=== PATIENT | male | born 1950 | race Caucasian/White ===

== ENCOUNTER → 2019-09-19 | Outpatient (CLI) | payer OTHER | LOC: SJCVC 13:54 | DX: R94.31 Abnormal electrocardiogram [ECG] [EKG] (principal); I45.10 Unspecified right bundle-branch block; E78.00 Pure hypercholesterolemia, unspecified; I10 Essential (primary) hypertension; I49.1 Atrial premature depolarization; R07.9 Chest pain, unspecified; R06.09 Other forms of dyspnea; R01.1 Cardiac murmur, unspecified ==

== ENCOUNTER → 2019-09-19 | Outpatient (CLI) | payer OTHER | LOC: CAT 15:32 | DX: Z13.6 Encounter for screening for cardiovascular disorders (principal); I25.10 Atherosclerotic heart disease of native coronary artery without angina pectoris; E78.00 Pure hypercholesterolemia, unspecified ==

== ENCOUNTER → 2019-09-22 | Outpatient (CLI) | payer OTHER ==
[~2019-09-22] MED LIST: BENICAR20 MG PO; CRESTOR10 MG PO; FLOMAX0.4 MG PO; LITE COAT ASPI325 MG PO
== END ==
LOC: SJCVCIMAG 07:09
PROVIDERS: ATTEND Internal Medicine Cardiovascular Disease
DX: I08.3 Combined rheumatic disorders of mitral, aortic and tricuspid valves (principal); R94.31 Abnormal electrocardiogram [ECG] [EKG]

== ENCOUNTER → 2019-09-23 | Outpatient (CLI) | payer OTHER | LOC: SJCVCIMAG 09-22 11:39 | PROVIDERS: ATTEND Internal Medicine Cardiovascular Disease | DX: I44.7 Left bundle-branch block, unspecified (principal); R94.31 Abnormal electrocardiogram [ECG] [EKG]; I10 Essential (primary) hypertension; I73.9 Peripheral vascular disease, unspecified ==

== ENCOUNTER → 2019-09-24 | Outpatient (CLI) | payer OTHER ==
[~2019-09-24] VITALS: Ht 170.2 cm; Wt 82.1 kg
[2019-09-24 08:47] VITALS: BP 136/68
--- NOTE | 2019-09-24 17:26 | CATHLAB ---
[facility] [place] [address] INVASIVE PROCEDURE REPORT Name: YANA SALEH Room #: REG CHAS SykesAlvarezChayaAlvarez#: [id number] Admission: 09/24/19 Attend Phys: Kishore Del Rosario MD, Discharge: Date of : 52 Report #: [id number] THIS REPORT FOR: cc: Jessica Lomeli MD,Jessica Del Rosario,Kishore Gibbs MD [facility] ~ APPROVED REPORT Study performed: 09/24/2019 09:25:53 Patient Details Patient Status: Out-Patient Room #: The patient is a 69 year-old male Event Personnel Kishore Del Rosario Clinical Instructor, Pepe Rader RN RN, Belinda Oneil RTR, Toni Barnett Roberta Monitor Procedures Performed Art Access - R femoral artery* Wesley Access - R femoral vein Right and Left Heart Cath w/or w/o Coronarie [id number] [facility] Aortogram Abdominal Peripheral Angio [id number] 79039 Initial Mod Sed Same Phys/QHP Gr [id number] 08814 Mod Sed Same Phys/QHP Ea 778807 Hemostasis w/ Mynx Indication Chest pain Procedure Narrative The Right Groin^ was infiltrated with subcutaneous anesthesia. A PINNACLE 6FR Sheath #[id number] sheath was inserted into the RFA 6F^. Coronary angiography was performed using coronary diagnostic catheters. The right coronary system was accessed and visualized with a JR4 catheter. The left coronary system was accessed and visualized with a JL4 catheter. The left ventricle was accessed and visualized with a STR PIG catheter. Left ventriculogram was performed in 30 degree projection. There was no hematoma. Intraoperative Conscious Sedation Sedation start time: 954 Case end Time: 1044 Fentanyl 100 mcg Versed 2 mg Fluoro Time: 2.58 minutes [facility] [address] [place] [address] INVASIVE PROCEDURE REPORT Name: STACIA SALEHRADHA YU Room #: [facility]#: [id number] Admission: 09/24/19 Attend Phys: Kishore Del Rosario, Discharge: Date of : 52 Report #: [id number] Dose: DAP 4023.30 cGycm2 400 mGy Contrast Type and Amount: Visipaque 100 ml Hemodynamics The right atrial mean pressure is 9 mmHg. The right ventricular pressure is 36/3 mmHg. The pulmonary artery pressure is 29/11 mmHg with a mean of 19 mmHg. The mean pulmonary capillary wedge pressure is 17 mmHg. The aortic pressure is 121/64 mmHg with a mean of 86 mmHg. The cardiac output using thermo method is 4.20 L/min. Conclusion 1. Successful right heart catheterization with cardiac output by thermodilution. See above hemodynamics. #2 normal left jugular size and systolic function EF 55 to 60%. #3 abdominal aorta mild plaquing no aneurysm formation #4 left main free of disease giving rise to LAD and circumflex #5 LAD with mild irregularities its a type I it stops short of the apex. Relatively small in caliber. #6 circumflex OM nondominant with mild disease. Moderate distribution. #7 dominant right coronary artery no occlusive disease is noted Recommendations and plan: Continue aggressive risk factor modification. There is no indication for coronary intervention. Pulmonary pressures are not elevated. Follow-up will be arranged. Follow discharge protocol. <ELECTRONICALLY SIGNED> By: Kishore Del Rosario MD, [facility] 09/24/191724 24 24 Kishore Del Rosario MD, FACC /INF
== END | disposition home or self-care (01) ==
LOC: CATH 07:44
PROVIDERS: ATTEND Internal Medicine Cardiovascular Disease
DX: R07.9 Chest pain, unspecified (principal); I25.10 Atherosclerotic heart disease of native coronary artery without angina pectoris; I70.0 Atherosclerosis of aorta; I10 Essential (primary) hypertension; E78.00 Pure hypercholesterolemia, unspecified; Z98.890 Other specified postprocedural states; Z79.82 Long term (current) use of aspirin; Z79.899 Other long term (current) drug therapy; Z88.8 Allergy status to other drugs, medicaments and biological substances

== ENCOUNTER 2020-08-05 10:37 | Emergency (ER) | payer OTHER ==
[~2020-08-05] VITALS: Ht 170.2 cm; Wt 82.6 kg
[2020-08-05 10:38] VITALS: BP 144/68
[2020-08-05] MEDS ORDERED: ASA81BEC PO (10:45)
[2020-08-05 11:23] LABS: ABSOLUTE NEUTROPHILS 3.9 thou/uL (1.4-8.2); BASOPHILS 1.1 % (0.0-2.0); EOSINOPHILS 1.5 % (0.0-3.0); HEMATOCRIT 41.6 % (42.0-52.0); HEMOGLOBIN 14.6 gm/dL (14.0-18.0); MCH 30.1 pg (26.0-34.0); MCHC 35.1 g/dL (28.0-37.0); MCV 85.7 fL (80.0-100.0); MONOCYTES 7.3 % (1.0-8.0); PLATELET COUNT 189 thou/uL (150-400); POLYS 65.1 % (36.0-66.0); RBC 4.85 mil/uL (4.50-6.00); RDW 13.4 % (10.5-14.5)
[2020-08-05 11:40] LABS: ANION GAP 11 mmol/L (7-16); BUN 15 mg/dL (7-18); CALCIUM 8.2 mg/dL (8.5-10.1); CHLORIDE 105 mmol/L (98-107); CO2 26 mmol/L (21-32); CREATININE 1.3 mg/dL (0.7-1.3); GLUCOSE 115 mg/dL (74-106); POTASSIUM 4.1 mmol/L (3.5-5.1); SODIUM 142 mmol/L (136-145)
[2020-08-05 11:49] LABS: ALBUMIN 3.6 g/dL (3.4-5.0); SGOT 27 U/L (15-37); SGPT 43 U/L (30-65); TOTAL BILIRUBIN 0.5 mg/dL (0.2-1.0); TOTAL PROTEIN 7.3 g/dL (6.4-8.2); TROPONIN-I <0.06 ng/mL (<0.06)
[2020-08-05 15:59] VITALS: BP 111/61
[2020-08-05 16:06] LABS: CHOLESTEROL 147 mg/dL (<200); HDL CHOLESTEROL 43 mg/dL (>40); LDL CHOLESTEROL 74 mg/dL (<100); TC:HDL 3.4 Ratio (Not establshd); TRIGLYCERIDE 150 mg/dL (<150); VLDL 30 mg/dL (<40)
[2020-08-05 16:37] LABS: FOLIC ACID 16.6 ng/mL (8.6-58.9)
--- NOTE | 2020-08-06 07:04 | EKG ---
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1950 Requested By: Elizabeth Spain Order Number: [id number] MD: Ashish Valdivia Measurements Intervals [place] Rate: 65 P: 53 [place]: 141 QRS: -34 QRSD: 131 T: 82 QT: 426 QTc: 443 Interpretive Statements Sinus rhythm Atrial premature complex Consider left atrial enlargement Left bundle branch block Compared to ECG 11/29/2008 13:05:28 Atrial premature complex(es) now present Left bundle-branch block now present Sinus bradycardia no longer present Ventricular premature complex(es) no longer present Electronically Signed On 08-06-2020 7:04:24 CDT by Ashish Valdivia [email or web address] <ELECTRONICALLY SIGNED> By: Ashish Valdivia MD, [facility] 08/06/20 0704 1058 1058 Ashish Valdivia MD, [facility] /EPI
== END 2020-08-05 16:00 | disposition left against medical advice (07) ==
LOC: ER 10:37 → EROBS 13:51
PROVIDERS: Emergency Medicine; Hospitalist
DX: R07.89 Other chest pain (principal); R06.00 Dyspnea, unspecified; R42 Dizziness and giddiness; G45.9 Transient cerebral ischemic attack, unspecified; E78.00 Pure hypercholesterolemia, unspecified; I10 Essential (primary) hypertension; Z53.29 Procedure and treatment not carried out because of patient's decision for other reasons; Z79.899 Other long term (current) drug therapy

== ENCOUNTER 2021-05-24 18:32 | Emergency (ER) | payer OTHER ==
[~2021-05-24] VITALS: Ht 170.2 cm; Wt 82.6 kg
[~2021-05-24 18:32] MED LIST changes: +ASA81BEC PO
[2021-05-24 19:11] LABS: ABSOLUTE NEUTROPHILS 4.2 thou/uL (1.4-8.2); BASOPHILS 0.9 % (0.0-2.0); HEMATOCRIT 41.6 % (42.0-52.0); HEMOGLOBIN 14.2 gm/dL (14.0-18.0); LYMPHOCYTES 30.7 % (24.0-44.0); MCH 28.8 pg (26.0-34.0); MCHC 34.1 g/dL (28.0-37.0); MCV 84.6 fL (80.0-100.0); MONOCYTES 7.3 % (1.0-8.0); PLATELET COUNT 234 thou/uL (150-400); POLYS 60.1 % (36.0-66.0); RBC 4.92 mil/uL (4.50-6.00); RDW 13.9 % (10.5-14.5)
[2021-05-24 19:21] LABS: CREATININE 1.3 mg/dL (0.7-1.3); POTASSIUM 4.2 mmol/L (3.5-5.1)
[2021-05-24 19:32] LABS: ALBUMIN 3.8 g/dL (3.4-5.0); DIRECT BILIRUBIN 0.1 mg/dL (<0.1-0.2); MAGNESIUM 2.2 mg/dL (1.8-2.4); PHOSPHORUS 3.7 mg/dL (2.5-4.9); TOTAL BILIRUBIN 0.3 mg/dL (0.2-1.0); TOTAL PROTEIN 7.3 g/dL (6.4-8.2)
[2021-05-24] MEDS ORDERED: HYDROXYZINE HCL25 M2 PO (20:09)
--- NOTE | 2021-05-25 07:17 | EKG ---
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1950 Requested By: Ananda Marie Order Number: [id number] MD: Ashish aVldivia Measurements Intervals [place] Rate: 63 P: 59 CT: 149 QRS: -47 QRSD: 134 T: 77 QT: 450 QTc: 461 Interpretive Statements Sinus rhythm Nonspecific IVCD Left ventricular hypertrophy Nonspecific T abnormalities, lateral leads Baseline wander in lead(s) V3 Compared to ECG 08/05/2020 10:58:29 Intraventricular conduction delay now present Left ventricular hypertrophy now present T-wave abnormality now present ST (T wave) deviation now present Electronically Signed On 05-25-2021 7:17:29 FIELD PIPELINES SUPERVISOR by Ashish Valdivia [email or web address] <ELECTRONICALLY SIGNED> By: Ashish Valdivia MD, FACC 05/25/21 0717 1840 1840 Ashish Valdivia MD, [facility] /EPI
[2021-05-25 08:55] VITALS: BP 132/67
== END 2021-05-24 22:30 | disposition home or self-care (01) ==
LOC: ER 18:32
PROVIDERS: Emergency Medicine
DX: R07.89 Other chest pain (principal); Z20.822 Contact with and (suspected) exposure to COVID-19; F41.9 Anxiety disorder, unspecified; I10 Essential (primary) hypertension; B19.20 Unspecified viral hepatitis C without hepatic coma; E78.00 Pure hypercholesterolemia, unspecified; E66.01 Morbid (severe) obesity due to excess calories; Z68.28 Body mass index [BMI] 28.0-28.9, adult; Z90.89 Acquired absence of other organs; Z86.16 Personal history of COVID-19; Z79.82 Long term (current) use of aspirin; Z79.899 Other long term (current) drug therapy